=== PATIENT | female | born 1960 | race Caucasian/White ===

== ENCOUNTER 2023-11-23 07:59 | Day surgery (SDC) | payer OTHER ==
[~2023-11-23] VITALS: Ht 157.5 cm; Wt 81.2 kg
[~2023-11-23 07:59] MED LIST: AMLODIPINE BESY10 MG PO; MONTELUKAST SOD10 MG PO; PROVENTIL0.083 % IN
[2023-11-23] MEDS ORDERED: LACTATED RINGER'S 1,000 ML IV ONE (08:39)
[2023-11-23] MEDS ORDERED: FAMOTIDINE 10MG/ML 2ML SDV IV ONE (08:39)
[2023-11-23] MEDS ORDERED: MULTI VIT PO (09:25)
[2023-11-23] MEDS ORDERED: [UNRECOGNIZED DRUG - OTHER] PO (10:08)
[2023-11-23 10:25] VITALS: BP 135/93
== END 2023-11-23 10:46 | disposition home or self-care (01) | DRG 951 ==
LOC: ENDO 07:59
PROVIDERS: ATTEND Surgery
PROC: 0DJD8ZZ Inspection of Lower Intestinal Tract, Via Natural or Artificial Opening Endoscopic (ICD-10-PCS; principal; 2023-11-23)
DX: Z12.11 Encounter for screening for malignant neoplasm of colon (principal); I10 Essential (primary) hypertension